=== PATIENT | female | born 2000 | race Caucasian/White ===

== ENCOUNTER 2021-08-15 17:22 | Inpatient (IN) | payer OTHER ==
[~2021-08-15] VITALS: Ht 162.6 cm; Wt 97.1 kg
[2021-08-15 18:26] LABS: HEMOGLOBIN 13.7 gm/dl (12.3-15.3); RED BLOOD COUNT 4.44 M/UL (4.00-5.10)
[2021-08-15 18:46] LABS: BUN/CREATININE RATIO 14 (0-10)
[2021-08-15] MEDS ORDERED: PRENATAL TABLE1 EAC1 PO (18:54)
[2021-08-17 06:17] LABS: HEMOGLOBIN 12.8 gm/dl (12.3-15.3)
[2021-08-18] MEDS ORDERED: DOCUSATE SODIU100 MG PO (13:02)
[2021-08-18] MEDS ORDERED: IBUPROFEN600 MG PO (13:02)
[2021-08-18] MEDS ORDERED: LABETALOL HCL100 MG PO (13:02)
[2021-08-18] MEDS ORDERED: NICOTINE PATCH1 EAC1 TD (13:02)
== END 2021-08-19 10:14 | disposition home or self-care (01) | DRG 807 ==
LOC: GENOP 17:22 → OB 17:43 → CDU 17:43 → OB 18:02
PROVIDERS: Obstetrics & Gynecology; ADMIT Obstetrics & Gynecology
PROC: 10E0XZZ Delivery of Products of Conception, External Approach (ICD-10-PCS; principal; 2021-08-16)
PROC: 10907ZC Drainage of Amniotic Fluid, Therapeutic from Products of Conception, Via Natural or Artificial Opening (ICD-10-PCS; 2021-08-16)
PROC: 3E033VJ Introduction of Other Hormone into Peripheral Vein, Percutaneous Approach (ICD-10-PCS; 2021-08-16)
PROC: 10H07YZ Insertion of Other Device into Products of Conception, Via Natural or Artificial Opening (ICD-10-PCS; 2021-08-16)
PROC: 4A1H7CZ Monitoring of Products of Conception, Cardiac Rate, Via Natural or Artificial Opening (ICD-10-PCS; 2021-08-16)
PROC: 10H073Z Insertion of Monitoring Electrode into Products of Conception, Via Natural or Artificial Opening (ICD-10-PCS; 2021-08-16)
PROC: 0HQ9XZZ Repair Perineum Skin, External Approach (ICD-10-PCS; 2021-08-16)
PROC: 3E0234Z Introduction of Serum, Toxoid and Vaccine into Muscle, Percutaneous Approach (ICD-10-PCS; 2021-08-16)
DX: O13.4 Gestational [pregnancy-induced] hypertension without significant proteinuria, complicating childbirth (principal); Z37.0 Single live birth; Z3A.37 37 weeks gestation of pregnancy; O70.0 First degree perineal laceration during delivery; O99.824 Streptococcus B carrier state complicating childbirth; Z28.310 Unvaccinated for COVID-19; O99.344 Other mental disorders complicating childbirth; F32.A Depression, unspecified; O99.892 Other specified diseases and conditions complicating childbirth; G43.909 Migraine, unspecified, not intractable, without status migrainosus; R94.5 Abnormal results of liver function studies; Z20.822 Contact with and (suspected) exposure to COVID-19; Z23 Encounter for immunization
CPT/HCPCS: 36415; 80053; 80307; 82570; 82800; 84156; 85014; 85018; 85025; 90471; 90715; J2001; J2540; J2590; J2795; J3010; J3430; J7070; J7120; U0002